=== PATIENT | female | born 1985 | race Caucasian/White ===

== ENCOUNTER 2016-10-12 10:25 | Emergency (ER) | payer OTHER ==
[~2016-10-12] VITALS: Ht 170.2 cm; Wt 106.8 kg
[~2016-10-12 10:25] MED LIST: ENDOCET 5-3251 EACH PO; IBUPROFEN800 MG PO; METHADONE10 MG PO; MOTRIN800 MG PO; PRENATAL1 EACH PO; XANAX0.5 MG PO
[2016-10-12] MEDS ORDERED: MOTRIN800 MG PO (12:52)
[2016-10-12] MEDS ORDERED: FIORICET 50-301 EACH PO (12:52)
[2016-10-12 13:42] VITALS: BP 116/77
== END 2016-10-12 13:43 | disposition home or self-care (01) ==
LOC: EME 10:25
PROC: 0HQ1XZZ Repair Face Skin, External Approach (ICD-10-PCS; principal; 2016-10-12)
DX: S01.111A Laceration without foreign body of right eyelid and periocular area, initial encounter (principal); S06.0X9A Concussion with loss of consciousness of unspecified duration, initial encounter; S40.811A Abrasion of right upper arm, initial encounter; S40.021A Contusion of right upper arm, initial encounter; W10.9XXA Fall (on) (from) unspecified stairs and steps, initial encounter; J34.2 Deviated nasal septum; J32.3 Chronic sphenoidal sinusitis; F17.200 Nicotine dependence, unspecified, uncomplicated
CPT/HCPCS: 70486; 99281; 99283

== ENCOUNTER 2016-10-18 15:03 | Emergency (ER) | payer OTHER ==
[~2016-10-18] VITALS: Ht 167.6 cm; Wt 104.5 kg
[~2016-10-18 15:03] MED LIST changes: +FIORICET 50-301 EACH PO
== END 2016-10-18 15:35 | disposition home or self-care (01) ==
LOC: EME 15:03
DX: S01.111D Laceration without foreign body of right eyelid and periocular area, subsequent encounter (principal); F17.200 Nicotine dependence, unspecified, uncomplicated
CPT/HCPCS: 99281; 99283

== ENCOUNTER 2017-04-09 13:41 | Emergency (ER) | payer OTHER ==
[~2017-04-09] VITALS: Ht 170.2 cm; Wt 112.3 kg
[2017-04-09 15:39] LABS: HEMATOCRIT 40.6 % (36.0-46.0); HEMOGLOBIN 13.7 G/DL (11.9-15.5); MCH 30.1 PG (29.0-34.0); MCHC 33.7 G/DL (30.0-36.0); MCV 89.2 FL (83-99); PLATELET COUNT 225 K/uL (156-360); RBC DIS.WIDTH-CV 12.6 % (11.8-14.6); RED BLOOD COUNT 4.55 M/uL (3.80-5.20); WHITE BLOOD COUNT 8.9 K/uL (4.1-10.2)
[2017-04-09 15:54] LABS: CHLORIDE 108 mEq/L (99-109); POTASSIUM 4.5 mEq/L (3.7-5.4); SODIUM 140 mEq/L (136-147)
[2017-04-09 15:56] LABS: GLUCOSE 78 mg/dL (70-99)
[2017-04-09 15:59] LABS: SERUM ETHYL ALCOHOL < 10 mg/dL
[2017-04-09 16:00] LABS: CREATININE 0.8 mg/dL (0.6-1.3); GFR ESTIMATE (CALCULATED) > 59 mL/min/
[2017-04-09 16:01] LABS: UREA NITROGEN (BUN) 15 mg/dL (9-23)
[2017-04-09] MEDS ORDERED: ATIVAN1 MG PO (16:01)
[2017-04-09 16:16] VITALS: BP 151/101
[2017-04-10] MEDS ORDERED: NORCO 5/3251 TABLET PO (18:27)
== END 2017-04-09 16:17 | disposition home or self-care (01) ==
LOC: EME 13:41
PROVIDERS: Emergency Medicine Emergency Medical Services
DX: F32.9 Major depressive disorder, single episode, unspecified (principal); Z79.891 Long term (current) use of opiate analgesic; Z72.0 Tobacco use
CPT/HCPCS: 80048; 85027; 99281; 99283; G0480

== ENCOUNTER 2017-04-10 16:33 | Emergency (ER) | payer OTHER ==
[~2017-04-10] VITALS: Ht 170.2 cm; Wt 97.0 kg
[~2017-04-10 16:33] MED LIST changes: +ATIVAN1 MG PO
[2017-04-10 17:15] LABS: HEMATOCRIT 39.7 % (36.0-46.0); HEMOGLOBIN 13.6 G/DL (11.9-15.5); MCH 30.5 PG (29.0-34.0); MCHC 34.3 G/DL (30.0-36.0); PLATELET COUNT 221 K/uL (156-360); RBC DIS.WIDTH-CV 12.5 % (11.8-14.6); RBC DIS.WIDTH-SD 40.8 % (39-53); RED BLOOD COUNT 4.46 M/uL (3.80-5.20); WHITE BLOOD COUNT 7.3 K/uL (4.1-10.2)
[2017-04-10 17:29] LABS: CHLORIDE 105 mEq/L (99-109); POTASSIUM 4.3 mEq/L (3.7-5.4); SODIUM 138 mEq/L (136-147)
[2017-04-10 17:34] LABS: SERUM ETHYL ALCOHOL < 10 mg/dL
[2017-04-10 17:35] LABS: CREATININE 0.8 mg/dL (0.6-1.3); GFR ESTIMATE (CALCULATED) > 59 mL/min/
[2017-04-10 17:36] LABS: UREA NITROGEN (BUN) 14 mg/dL (9-23)
[2017-04-10 17:45] LABS: GLUCOSE 103 mg/dL (70-99)
[2017-04-10] MEDS ORDERED: NORCO 5/3251 TABLET PO (18:27)
[2017-04-10 19:49] VITALS: BP 123/79
== END 2017-04-10 19:51 | disposition home or self-care (01) ==
LOC: TRA 16:33
PROVIDERS: Emergency Medicine
PROC: 0PSJXZZ Reposition Left Radius, External Approach (ICD-10-PCS; principal; 2017-04-10)
DX: S52.352A Displaced comminuted fracture of shaft of radius, left arm, initial encounter for closed fracture (principal); V48.5XXA Car driver injured in noncollision transport accident in traffic accident, initial encounter; Y92.410 Unspecified street and highway as the place of occurrence of the external cause; F11.99 Opioid use, unspecified with unspecified opioid-induced disorder; F17.200 Nicotine dependence, unspecified, uncomplicated
CPT/HCPCS: 70450; 71045; 72125; 73090; 80048; 85027; 99281; 99285; G0480; J2270

== ENCOUNTER → 2017-04-24 | Outpatient (CLI) | payer OTHER ==
[~2017-04-24] MED LIST changes: +NORCO 5/3251 TABLET PO
== END | disposition home or self-care (01) ==
LOC: CDC 11:33
DX: Z01.810 Encounter for preprocedural cardiovascular examination (principal); S52.322A Displaced transverse fracture of shaft of left radius, initial encounter for closed fracture; M79.632 Pain in left forearm
CPT/HCPCS: 93000

== ENCOUNTER 2017-05-01 12:04 | Day surgery (SDC) | payer OTHER ==
[~2017-05-01] VITALS: Ht 170.2 cm; Wt 110.2 kg
[~2017-05-01 12:04] MED LIST changes: +NEXPLANON68 MG SC
[2017-05-01 12:50] VITALS: BP 147/86
[2017-05-01 17:55] VITALS: BP 152/89
[2017-05-01 18:26] VITALS: BP 129/68
== END 2017-05-01 19:20 | disposition home or self-care (01) ==
LOC: SDC 12:04
PROVIDERS: Orthopaedic Surgery
PROC: 0PSJ04Z Reposition Left Radius with Internal Fixation Device, Open Approach (ICD-10-PCS; principal; 2017-05-01)
DX: S52.322A Displaced transverse fracture of shaft of left radius, initial encounter for closed fracture (principal); V48.5XXA Car driver injured in noncollision transport accident in traffic accident, initial encounter; Y92.410 Unspecified street and highway as the place of occurrence of the external cause; Z79.891 Long term (current) use of opiate analgesic; F17.200 Nicotine dependence, unspecified, uncomplicated
CPT/HCPCS: 73090; 76000; 81025; C1713; J0690; J1100; J2250; J2405; J2765; J2795

== ENCOUNTER 2017-10-13 15:29 | Emergency (ER) | payer OTHER ==
[~2017-10-13] VITALS: Ht 170.2 cm; Wt 103.0 kg
[2017-10-13] MEDS ORDERED: REMERON30 M2 PO (18:13)
[2017-10-13 18:38] VITALS: BP 128/88
== END 2017-10-13 18:39 | disposition home or self-care (01) ==
LOC: EME 15:29
DX: F41.9 Anxiety disorder, unspecified (principal); F32.9 Major depressive disorder, single episode, unspecified; F43.22 Adjustment disorder with anxiety; F11.20 Opioid dependence, uncomplicated; F17.200 Nicotine dependence, unspecified, uncomplicated; Z88.8 Allergy status to other drugs, medicaments and biological substances
CPT/HCPCS: 90839; 99281; 99283